=== PATIENT | female | born 1935 | race Caucasian/White ===

== ENCOUNTER → 2017-03-29 | Outpatient (CLI) | payer MEDICARE, SELFPAY ==
--- NOTE | 2017-04-01 05:52 | US ---
Procedure: US CAROTID DOPPLER BILATERAL Exam Date: 03/29/2017 1:36 PM CDT Ordering Provider: Melina Deal Clinical Indication: DISORDER OF CAROTID ARTERY Comparison: None TECHNIQUE : Real-time cerebrovascular ultrasonography was obtained from sternal notch to the angle of the mandible bilaterally utilizing bhat scale, color flow and spectral Doppler analysis. Systolic velocity ratios were calculated for internal carotid artery to common carotid artery bilaterally. FINDINGS: RIGHT CAROTID BIFURCATION: No significant atherosclerotic plaque. Peak systolic and end-diastolic velocities in the right internal carotid artery are 49 and 15 cm/s. Internal carotid/common carotid ratio is 1.1. Right vertebral flow is antegrade. LEFT CAROTID BIFURCATION: No significant atherosclerotic plaque. Peak systolic and end-diastolic velocities in the left internal carotid artery are 49 and 15 cm/s. Internal carotid/common carotid ratio is 1.0. Left vertebral flow is antegrade. IMPRESSION: 1. No significant atherosclerotic plaque in each carotid bulb and ICA origin. 2. There is no significant stenosis (less than 30%) at both ICA origins. 3. Bilateral antegrade vertebral artery flow. Electronically signed by: Misbah Fuentes MD 04/01/2017 5:51 AM CDT
== END ==
LOC: US 13:18
PROVIDERS: ATTEND Family Medicine
DX: R22.1 Localized swelling, mass and lump, neck (principal); I77.9 Disorder of arteries and arterioles, unspecified; R42 Dizziness and giddiness

== ENCOUNTER 2017-06-09 19:40 | Emergency (ER) | payer MEDICARE ==
--- NOTE | 2017-06-09 19:47 | ED.PDOC ---
History of Present Illness - General Chief Complaint: General Stated Complaint: irregular heart beat Time Seen by Provider: 06/09/17 19:46 Source: patient Exam Limitations: no limitations - History of Present Illness Timing/Duration: 1-3 hours Severity: moderate Location: shoulder Prior Chest Pain/Cardiac Workup: other - previous cardiac ablation fo SVT Improving Factors: nothing Worsening Factors: nothing Nitro Today/Relief: no nitro taken today Aspirin Treatment Today: no aspirin today Associated Symptoms: nausea/vomiting Allergies/Adverse Reactions: Allergies NO KNOWN ALLERGY Allergy (Verified 06/09/17 20:39) Home Medications: Ambulatory Orders Clonazepam 0.5 mg PO BEDTIME 03/23/14 HYDROcodone 5MG/APAP 325MG [[place] 5/325] 1 ea PO Q4-6H PRN 03/23/14 Metoprolol Tartrate 03/23/14 Simvastatin [Zocor] 2.5 mg PO BEDTIME 03/23/14 Trazodone HCl 50 mg PO BEDTIME 03/23/14 Review of Systems - Review of Systems Constitutional: States: no symptoms reported EENTM: States: no symptoms reported Respiratory: States: no symptoms reported Cardiology: States: see HPI Gastrointestinal/Abdominal: States: no symptoms reported Musculoskeletal: States: no symptoms reported Skin: States: no symptoms reported Past Medical History (General) - Patient Medical History Hx Cardiac Disorders: Yes - SVT, hx ablation, irreg HR. Hx Congestive Heart Failure: No Hx Pacemaker: No Hx Hypertension: No Hx Diabetes: No - reports borderline. Hx MRSA: No Surgical History: other - hysterectomy,cardiac ablation - Social History Hx Tobacco Use: No - Quit 6 mo ago, now on vape cig Hx Chewing Tobacco Use: No Hx Alcohol Use: No Hx Substance Use: No Hx Physical Abuse: No Hx Emotional Abuse: No - Activities of Daily Living Patient Lives Alone: No - daughter - Female History Patient is a Female of Child Bearing Age (10 -59 yrs old): Yes Patient : No - menopausal Family Medical History - Family History Sister Living Status: Cause of : [place] last week Hx Cardiac Disease: Yes - dad Physical Exam - Physical Exam General Appearance: Alert, Anxious, No apparent distress Eyes, Ears, Nose, Throat Exam: PERRL/EOMI, normal ENT inspection Neck: non-tender, full range of motion, supple Respiratory: chest non-tender, lungs clear, normal breath sounds, no respiratory distress Cardiovascular/Chest: normal peripheral pulses, regular rate, rhythm, no edema, no murmur Peripheral Pulses: radial,right: 2+, radial,left: 2+ Gastrointestinal/Abdominal: normal bowel sounds, non tender, soft, no organomegaly Neurologic: alert, oriented x 3 Skin Exam: normal color, warm/dry Progress - Progress Progress: 06/09/17 21:27 Vital Signs 06/09/17 20:31 Temperature 97 F L Pulse Rate [ 79 left] Respiratory 18 Rate Blood Pressure 159/90 [left] O2 Sat by Pulse 98 Oximetry - Results/Orders Results/Orders: Laboratory Tests 06/09/17 20:06 WBC 5.7 RBC 4.09 L Hgb 13.3 Hct 39.1 MCV 95.5 MCH 32.5 H MCHC 33.9 RDW 13.7 Plt Count 282 MPV 8.4 Absolute Neuts (auto) 2.70 Absolute Lymphs (auto) 1.90 Absolute Monos (auto) 0.50 Absolute Eos (auto) 0.50 H Absolute Basos (auto) 0.10 Neutrophils % 46.6 Lymphocytes % 33.8 Monocytes % 9.0 Eosinophils % 9.1 H Basophils % 1.5 PT 10.0 INR 0.880 PTT (SP) 35.8 Sodium 136 Potassium 4.0 Chloride 105 Carbon Dioxide 25 Anion Gap 10.0 L BUN 16 Creatinine 0.59 L BUN/Creatinine Ratio 27.1 H Random Glucose 131 H Serum Osmolality 275.0 Calcium 9.4 Magnesium 1.9 Total Bilirubin 0.6 Direct Bilirubin 0.2 Indirect Bilirubin 0.4 AST 50 H ALT 42 Alkaline Phosphatase 383 H Creatine Kinase 52 CK-MB (CK-2) 0.9 CK-MB (CK-2) % Not Reportable Troponin I < 0.02 Serum Total Protein 7.7 Albumin 3.6 Laboratory Tests 06/09/17 06/09/17 20:06 22:00 WBC 5.7 RBC 4.09 L Hgb 13.3 Hct 39.1 MCV 95.5 MCH 32.5 H MCHC 33.9 RDW 13.7 Plt Count 282 MPV 8.4 Absolute Neuts (auto) 2.70 Absolute Lymphs (auto) 1.90 Absolute Monos (auto) 0.50 Absolute Eos (auto) 0.50 H Absolute Basos (auto) 0.10 Neutrophils % 46.6 Lymphocytes % 33.8 Monocytes % 9.0 Eosinophils % 9.1 H Basophils % 1.5 PT 10.0 INR 0.880 PTT (SP) 35.8 Sodium 136 Potassium 4.0 Chloride 105 Carbon Dioxide 25 Anion Gap 10.0 L BUN 16 Creatinine 0.59 L BUN/Creatinine Ratio 27.1 H Random Glucose 131 H Serum Osmolality 275.0 Calcium 9.4 Magnesium 1.9 Total Bilirubin 0.6 Direct Bilirubin 0.2 Indirect Bilirubin 0.4 AST 50 H ALT 42 Alkaline Phosphatase 383 H Creatine Kinase 52 CK-MB (CK-2) 0.9 CK-MB (CK-2) % Not Reportable Troponin I < 0.02 < 0.02 Serum Total Protein 7.7 Albumin 3.6 - EKG/XRAY/CT EKG: Sinus Comments: heart rate 67 occ pvc;low voltage QRS XRAY: chest - no acute abnormalities noted Departure - Departure Clinical Impression: Palpitations Time of Disposition: 22:48 Disposition: Discharge to Home or Self Care Condition: Fair Departure Forms: ED Discharge - Pt. Copy, Patient Portal Self Enrollment Instructions: DI for Arrhythmias, DI for Palpitations Referrals: Melina Deal DO [Primary Care Provider] - 1-2 Weeks Home Medications: Ambulatory Orders Clonazepam 0.5 mg PO BEDTIME 03/23/14 HYDROcodone 5MG/APAP 325MG [[place] 5/325] 1 ea PO Q4-6H PRN 03/23/14 Metoprolol Tartrate 03/23/14 Simvastatin [Zocor] 2.5 mg PO BEDTIME 03/23/14 Trazodone HCl 50 mg PO BEDTIME 03/23/14 Additional Instructions: Continue with all home medications;Return to ER as neede;Follow up with primary md 06/12/2017 call for appointment
[2017-06-09] MEDS ORDERED: SODIUM CHLORIDE 0.9% 500ML 500 ML IVS ONE (19:49)
--- NOTE | 2017-06-09 20:20 | RAD ---
EXAM DESCRIPTION: Chest,1 View CLINICAL HISTORY: pain COMPARISON: March 23, 2014 FINDINGS: Cardiac silhouette is within normal limits. Aorta is tortuous. The patient is rotated. There is atherosclerosis. EKG leads project over the chest. There is no focal parenchymal or pleural disease. There is no acute osseous process visualized. IMPRESSION: No evidence of acute cardiopulmonary disease. Electronically signed by: Pop Stout MD 06/09/2017 8:18 PM CDT
[2017-06-09 20:39] VITALS: TEMP 97
[2017-06-09 22:07] VITALS: O2SAT 95
[2017-06-09 23:01] VITALS: BP 133/76
== END 2017-06-09 23:01 | disposition home or self-care (01) ==
LOC: ER 19:40
DX: R00.2 Palpitations (principal); F17.210 Nicotine dependence, cigarettes, uncomplicated; Z79.899 Other long term (current) drug therapy
CPT/HCPCS: 36415; 71010; 80048; 80076; 82550; 82553; 84484; 85025; 85610; 85730; 93005; J7040

== ENCOUNTER 2017-06-10 23:37 | Emergency (ER) | payer MEDICARE ==
[2017-06-10 23:59] VITALS: TEMP 98.3; O2SAT 98
[2017-06-11] MEDS ORDERED: NITROGLYCERIN 0.4 MG 25 EA TAB SL ONE (00:10)
[2017-06-11] MEDS ORDERED: ASPIRIN (CHEWABLE) 81 MG TAB PO ONE (00:10)
[2017-06-11] MEDS ORDERED: LIDOCAINE VIS-MYLANTA 30 ML UD PO ONE ×2 (00:33→00:34)
--- NOTE | 2017-06-11 00:46 | ED.PDOC ---
History of Present Illness - General Chief Complaint: Cardiovascular Problem Stated Complaint: irregular heartbeat Time Seen by Provider: 06/11/17 00:09 Source: patient, RN notes reviewed, Vital Signs reviewed Exam Limitations: no limitations - History of Present Illness Initial Comments: Patient comes to ER with c/o irregular heart rate and pulse down to 39. The irregular HR started yesterday and she was seen here in ER last night and had a negative workup and was sent home with diagnosis of palpitations and a prescription of Metoprolol. Today her heart rate felt irregular so he took one. She was told in the past, before her cardiac ablation, that she could take Metoprolol twice daily if needed so she took a second dose because her heart rate still felt irregular. Her pulse was only in the 70's when she took the second Metoprolol and it dropped to 39 after taking the second dose. She does reports some indigestion and L sided chest pressure. Timing/Duration: days - 2 Severity: mild Location: other - L chest Activities at Onset: rest Prior Chest Pain/Cardiac Workup: other - Had cardiac ablation in past Improving Factors: nothing Worsening Factors: medication Nitro Today/Relief: 0.4 mg x 1, provided by ED, mild relief Aspirin Treatment Today: 81 mg x 4, provided by ED Associated Symptoms: chest pain, shortness of breath Allergies/Adverse Reactions: Allergies NO KNOWN ALLERGY Allergy (Verified 06/10/17 23:59) Home Medications: Ambulatory Orders Clonazepam 0.5 mg PO BEDTIME 03/23/14 HYDROcodone 5MG/APAP 325MG [[place] 5/325] 1 ea PO Q4-6H PRN 03/23/14 Metoprolol Tartrate 03/23/14 Simvastatin [Zocor] 2.5 mg PO BEDTIME 03/23/14 Trazodone HCl 50 mg PO BEDTIME 03/23/14 Nitroglycerin 0.4 mg Tab [Nitrostat] 1 ea SL .Q5M PRN #1 bttl 06/11/17 Review of Systems - Review of Systems Constitutional: States: no symptoms reported Respiratory: States: short of breath Cardiology: States: see HPI, chest pain, palpitations. Denies: syncope Gastrointestinal/Abdominal: States: see HPI - Indigestion Musculoskeletal: States: no symptoms reported Skin: States: no symptoms reported Neurological: States: no symptoms reported All other Systems: No Change from Baseline Past Medical History (General) - Patient Medical History Hx Seizures: No Hx Stroke: No Hx Dementia: No Hx Asthma: No Hx of COPD: No Hx Cardiac Disorders: Yes - SVT, hx ablation, irreg HR. Hx Congestive Heart Failure: No Hx Pacemaker: No Hx Hypertension: Yes Hx Thyroid Disease: No Hx Diabetes: No - reports borderline. Hx Gastroesophageal Reflux: No Hx Renal Disease: No Hx Cancer: No Hx of HIV: No Hx Hepatitis C: No Hx MRSA: No Surgical History: Hysterectomy - Vaccination History Hx Tetanus, Diphtheria Vaccination: No Hx Influenza Vaccination: No Hx Pneumococcal Vaccination: No - Social History Hx Tobacco Use: No - Quit 6 mo ago, now on vape cig Hx Chewing Tobacco Use: No Hx Alcohol Use: No Hx Substance Use: No Hx Substance Use Treatment: No Hx Depression: No Feels Threatened In Home Enviroment: No Feels Threatened In a Relationship: No Hx Physical Abuse: No Hx Emotional Abuse: No Hx Suspected Abuse: No - Female History Patient : No - menopausal Family Medical History - Family History Sister Living Status: Cause of : [place] last week Hx Cardiac Disease: Yes - dad Physical Exam - Physical Exam General Appearance: Alert, Anxious, No apparent distress, Well Developed, Well Groomed, Well Hydrated, Well Nourished Neck: supple, normal inspection Respiratory: chest non-tender, lungs clear, normal breath sounds, no respiratory distress, no accessory muscle use Cardiovascular/Chest: normal peripheral pulses, regular rate, rhythm, no gallop , no JVD, no murmur Peripheral Pulses: radial,right: 2+, radial,left: 2+ Extremity: normal range of motion, normal inspection Neurologic: alert, normal mood/affect, oriented x 3 Skin Exam: normal color, warm/dry Comments: Vital Signs 06/10/17 06/10/17 06/11/17 23:42 23:49 00:23 Temperature 98.3 F Pulse Rate [ 66 66 77 monitor] Respiratory 15 Rate Blood Pressure 150/85 118/74 [Left Arm] O2 Sat by Pulse 98 Oximetry 06/11/17 00:29 Temperature Pulse Rate [ 69 monitor] Respiratory 14 Rate Blood Pressure 111/54 [Left Arm] O2 Sat by Pulse Oximetry Progress - Progress Progress: 06/11/17 01:08 Discussed palpitations/symptoms, labs, etc with patient. 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 Discussed will need follow up with Manager [facility] and a holter monitor. Will d/c home with Rx for SLNTG - Results/Orders Results/Orders: Laboratory Tests 06/11/17 06/11/17 00:00 00:00 WBC 7.1 RBC 3.98 L Hgb 12.9 Hct 38.1 MCV 95.8 MCH 32.4 H MCHC 33.8 RDW 13.4 Plt Count 281 MPV 9.4 Absolute Neuts (auto) 3.40 Absolute Lymphs (auto) 2.10 Absolute Monos (auto) 0.90 H Absolute Eos (auto) 0.70 H Absolute Basos (auto) 0.00 Neutrophils % 48.8 Lymphocytes % 29.3 Monocytes % 12.2 H Eosinophils % 9.4 H Basophils % 0.3 Sodium 136 Potassium 4.4 Chloride 103 Carbon Dioxide 26 Anion Gap 11.4 L BUN 14 Creatinine 0.58 L BUN/Creatinine Ratio 24.1 H Random Glucose 76 Serum Osmolality 271.2 L Calcium 9.4 Total Bilirubin 0.8 AST 65 H ALT 42 Alkaline Phosphatase 359 H Creatine Kinase 66 CK-MB (CK-2) 0.8 CK-MB (CK-2) % Not Reportable Troponin I < 0.02 Serum Total Protein 7.5 Albumin 3.3 Globulin 4.2 H Albumin/Globulin Ratio 0.8 L - EKG/XRAY/CT EKG: Sinus, no ST T wave changes, Unchanged from - 06/09/17 Departure - Departure Clinical Impression: Palpitations Time of Disposition: 01:12 Disposition: Discharge to Home or Self Care Condition: Good Departure Forms: ED Discharge - Pt. Copy, Patient Portal Self Enrollment Instructions: DI for Palpitations, DI for Arrhythmias Diet: resume usual diet Activity: increase activity as tolerated Referrals: Melina Deal DO [Primary Care Provider] - 1-2 Weeks Prescriptions: Nitroglycerin 0.4 mg Tab [Nitrostat] 1 ea SL .Q5M PRN #1 bttl PRN Reason: Chest Pain Home Medications: Ambulatory Orders Clonazepam 0.5 mg PO BEDTIME 03/23/14 HYDROcodone 5MG/APAP 325MG [[place] 5/325] 1 ea PO Q4-6H PRN 03/23/14 Metoprolol Tartrate 03/23/14 Simvastatin [Zocor] 2.5 mg PO BEDTIME 03/23/14 Trazodone HCl 50 mg PO BEDTIME 03/23/14 Nitroglycerin 0.4 mg Tab [Nitrostat] 1 ea SL .Q5M PRN #1 bttl 06/11/17 Additional Instructions: Stop Metoprolol Take Nitroglycerine as needed Follow up with Manager C[facility]
[2017-06-11 01:26] VITALS: BP 120/68
== END 2017-06-11 01:27 | disposition home or self-care (01) ==
LOC: ER 23:37
DX: R00.2 Palpitations (principal); I10 Essential (primary) hypertension; Z79.899 Other long term (current) drug therapy

== ENCOUNTER 2018-01-12 20:32 | Observation (INO) | payer MEDICARE ==
--- NOTE | 2018-01-12 21:33 | ED.PDOC ---
History of Present Illness - General Chief Complaint: Neuro Symptoms/Deficits Stated Complaint: slurred speech Time Seen by Provider: 01/12/18 21:09 Source: patient, family Exam Limitations: no limitations Additional Information: PT STATES SHE WAS WALKING WITH HER DAUGHTER WHEN SHE BEGAN TO HAVE DIFFICULTY SPEAKING. SHE KNEW WHAT SHE WANTED TO SAY BUT COULD NOT FORM THE WORDS. STATES THE WRONG WORDS CAME OUT ALSO IN THE WRONG ORDER AND SHE WAS TALKING "NONSENSE" . WAS MUCH BETTER WHEN SHE ARRIVED HERE BUT HAS SINCE RESOLVED. - History of Present Illness Timing/Duration: other - DATA VIRTUALIZATION CONSULTANT Severity: moderate Improving Factors: other - RESOLVED COMPLETELY AT THE TIME OF THE EXAM Worsening Factors: nothing Associated Symptoms: denies symptoms Allergies/Adverse Reactions: Allergies NO KNOWN ALLERGY Allergy (Verified 06/10/17 23:59) Home Medications: Ambulatory Orders Clonazepam 0.5 mg PO BEDTIME 03/23/14 HYDROcodone 5MG/APAP 325MG [[place] 5/325] 1 ea PO Q4-6H PRN 03/23/14 Metoprolol Tartrate 03/23/14 Simvastatin [Zocor] 2.5 mg PO BEDTIME 03/23/14 Trazodone HCl 50 mg PO BEDTIME 03/23/14 Nitroglycerin 0.4 mg Tab [Nitrostat] 1 ea SL .Q5M PRN #1 bttl 06/11/17 Review of Systems - Review of Systems Constitutional: Denies: chills, fever EENTM: States: no symptoms reported Respiratory: Denies: cough, orthopnea, short of breath Cardiology: Denies: chest pain, palpitations, syncope Gastrointestinal/Abdominal: Denies: abdominal pain, nausea, vomiting Genitourinary: States: no symptoms reported Musculoskeletal: States: no symptoms reported Skin: States: no symptoms reported Neurological: States: other - HAS HAD SOME ATAXIA RECENTLY WHICH HAS BEEN INTERMITTENT. Endocrine: States: no symptoms reported Hematologic/Lymphatic: States: no symptoms reported Past Medical History (General) - Patient Medical History Hx Seizures: No Hx Stroke: No Hx Dementia: No Hx Asthma: No Hx of COPD: No Hx Cardiac Disorders: Yes - SVT Hx Congestive Heart Failure: No Hx Pacemaker: No Hx Hypertension: Yes Hx Thyroid Disease: No Hx Diabetes: No Hx Gastroesophageal Reflux: No Hx Renal Disease: No Hx Cancer: No Hx of HIV: No Hx Hepatitis C: No Hx MRSA: No Surgical History: Hysterectomy - Vaccination History Hx Tetanus, Diphtheria Vaccination: No Hx Influenza Vaccination: No Hx Pneumococcal Vaccination: No - Social History Hx Tobacco Use: Yes - Vapes currently Hx Chewing Tobacco Use: No Hx Alcohol Use: No Hx Substance Use: No Hx Substance Use Treatment: No Hx Depression: No Hx Physical Abuse: No Hx Emotional Abuse: No Hx Suspected Abuse: No - Female History Patient : No - menopausal Family Medical History - Family History Sister Living Status: Cause of : [place] last week Hx Cardiac Disease: Yes - dad Physical Exam - Physical Exam General Appearance: Alert, No apparent distress Eye Exam: bilateral normal ENT Exam: normal ENT inspection, hearing grossly normal Neck: non-tender, full range of motion, supple, normal inspection, other - NO BRUITS Respiratory: lungs clear, normal breath sounds Cardiovascular/Chest: regular rate, rhythm, no murmur Gastrointestinal/Abdominal: normal bowel sounds, non tender, soft, no organomegaly Back Exam: normal inspection, no CVA tenderness Extremities Exam: non-tender, normal range of motion, no evidence of injury, no edema Mental Status: alert, oriented x 3 program attendant Exam: normal speech, PERRL Coordination/Gait: normal finger to nose, negative Romberg's sign, other - NL HEEL TO [place] Motor/Sensory: no motor deficit, no sensory deficit Skin Exam: normal color, warm/dry Progress - Progress Progress: 01/12/18 23:08 REMAINS NEUROLOGICALLY NON FOCAL. SPEECH NL. - EKG/XRAY/CT XRAY: chest - BLAIR CT: HEAD: BLAIR CT Ordered: Yes Stroke Information - Onset of Symptoms Symptoms of Stroke: Aphasia Stroke Onset of Symptoms Date: 01/12/18 Stroke Onset of Symptoms Time: 20:00 - Contraindications Antithrombotic Contraindication: Treatment not indicated - SX'S RESOLVED. Departure - Departure Clinical Impression: TIA (transient ischemic attack) Qualifiers: Transient cerebral ischemia type: unspecified Qualified Code(s): G45.9 - Transient cerebral ischemic attack, unspecified Hypertension Qualifiers: Hypertension type: essential hypertension Qualified Code(s): I10 - Essential ( primary) hypertension Time of Disposition: 23:10 - D/W ROMANA WILL ADMIT Disposition: Admit Patient Condition: Fair Departure Forms: ED Discharge - Pt. Copy, Patient Portal Self Enrollment Referrals: Melina Deal DO [Primary Care Provider] - 1-2 Weeks Home Medications: Ambulatory Orders Clonazepam 0.5 mg PO BEDTIME 03/23/14 HYDROcodone 5MG/APAP 325MG [[place] 5/325] 1 ea PO Q4-6H PRN 03/23/14 Metoprolol Tartrate 03/23/14 Simvastatin [Zocor] 2.5 mg PO BEDTIME 03/23/14 Trazodone HCl 50 mg PO BEDTIME 03/23/14 Nitroglycerin 0.4 mg Tab [Nitrostat] 1 ea SL .Q5M PRN #1 bttl 06/11/17
--- NOTE | 2018-01-12 21:35 | CT ---
EXAM DESCRIPTION: Head CLINICAL HISTORY: slurred speech COMPARISON: February 10, 2008 Technique: Contiguous axial images of the brain were obtained without the administration of intravenous contrast. This exam was performed according to our departmental dose-optimization program which includes use of Automated Exposure Control, adjustment of the mA and/or kV according to patient size and/or use of iterative reconstruction technique. Findings: Brain: Mild cerebral atrophy. Moderate periventricular and deep white matter hypodensities, most commonly due to nonspecific white matter chronic microvascular ischemia.No hemorrhage. No territorial infarct. No mass effect. No herniation. Ventricles: Within normal limits for patient's age. Bones: No acute osseous abnormality. Paranasal sinuses: Unremarkable. Mastoid air cells: Unremarkable. Soft tissues: No acute abnormality. IMPRESSION: No acute intracranial abnormalities. Cerebral atrophy and nonspecific white matter chronic microvascular ischemic changes. If clinical concern for infarct persists recommend obtaining MRI for further evaluation. Electronically signed by: Luis Maldonado MD 01/12/2018 9:33 PM CDT
--- NOTE | 2018-01-12 22:19 | RAD ---
EXAM DESCRIPTION: Chest,1 View CLINICAL HISTORY:82 years Female, AMS Comparison: June 09, 2017 FINDINGS: No focal lung consolidation. No pleural effusion. No pneumothorax. Cardiac and mediastinal silhouette is unremarkable. No acute osseous abnormality. Atherosclerotic vascular calcifications.Soft tissues are unremarkable. IMPRESSION: No acute findings. No focal lung consolidation. Electronically signed by: Luis Maldonado MD 01/12/2018 10:18 PM CDT
[2018-01-13] MEDS ORDERED: SODIUM CHLORIDE 0.9% (FLUSH) 10 ML SYG IV PRN (00:45)
[2018-01-13] MEDS ORDERED: ONDANSETRON INJ 4 MG/2 ML VIAL IV PRN (00:45)
[2018-01-13] MEDS ORDERED: PANTOPRAZOLE SODIUM IV 40 MG VIAL IV SCH ×2 (01:00→21:00)
[2018-01-13] MEDS ORDERED: CLONAZEPAM 0.5 MG PO SCH (01:00)
[2018-01-13] MEDS ORDERED: ENOXAPARIN SODIUM 40 MG/0.4 ML SYG SUBCU SCH ×2 (01:00→21:00)
[2018-01-13] MEDS ORDERED: IV SET AND CAP CHANGE INJ INJ SCH (01:00)
[2018-01-13] MEDS ORDERED: TRAZODONE HCL 50 MG PO SCH (01:00)
[2018-01-13] MEDS ORDERED: traZODone HCL 50 MG TAB ONE (01:06)
[2018-01-13] MEDS ORDERED: SODIUM CHLORIDE 0.9% (FLUSH) 10 ML SYG IV SCH (09:00)
[2018-01-13] MEDS ORDERED: ATORVASTATIN 10 MG TAB PO ONE (09:42)
[2018-01-13 10:10] VITALS: BP 111/66; TEMP 97.8; O2SAT 93
--- NOTE | 2018-01-13 12:18 | SSS ---
SUPERVISING PHYSICIAN: Alejandro Esqueda M.D. DISCHARGE DIAGNOSIS: 1. Transient ischemic attack symptoms that have resolved. 2. Aphasia/word salad most likely secondary to #1. 3. Gastroesophageal reflux disease with some chronic nausea. 4. Primary biliary cirrhosis currently on no treatments. 5. Anxiety. 6. Osteoarthritis. HISTORY OF PRESENT ILLNESS: This is an 82 year-old female patient that presented to the Emergency Room yesterday with previous symptoms of difficulty speaking. She and her daughter had been walking and she knew what to say, but she could not form the words. She knew the words were wrong. She had no other neurological symptoms that were noted. Shortly thereafter she went home and then decided to come to the Emergency Room. By the time she got to the Emergency Room she only occasionally had the confused or unintelligible mixture of words and phrases, and it had mostly resolved. A CT of her head was completed and showed no intracranial abnormalities with cerebral atrophy and nonspecific white matter chronic microvascular ischemic changes noted. A chest x-ray was also done and showed no acute findings. Lab work showed a normal CBC with PT of 10.7, INR of 0.9 and PTT 36.2. Her electrolytes were within normal limits excepting that her AST was elevated at 74, alkaline phosphatase was 475, serum total protein 8.5, globulin 4.5. Her UA was within normal limits. The patient was placed in Observation in the hospital. PAST MEDICAL HISTORY: 1. Paroxysmal supraventricular tachycardia. She had been evaluated in the past by Dr. Bañuelos and Dr. Dixon. She is currently on no medications. 2. Anxiety. 3. Primary biliary cirrhosis. She has seen Dr. Cooley in the past but is not currently being treated with any medications. 4. Gastroesophageal reflux disease with chronic nausea 5. Osteoarthritis. PAST SURGICAL HISTORY: 1. Hysterectomy. 2. Toe surgery. CURRENT MEDICATIONS: 1. Hydrocodone. 2. Clonazepam, 3. Trazodone. ALLERGIES: NO KNOWN DRUG ALLERGIES. SOCIAL HISTORY: She lives in [place]. She quit smoking in 2013 but currently vapes. She drinks alcohol on a very rare occasion and denies any illicit drug use. REVIEW OF SYSTEMS: Negative for chills, fever or weight changes. HEENT: Positive for speech abnormalities as stated in the History of Present Illness. Negative for ear pain, vision changes, sore throat or sinus symptoms. RESPIRATORY: Denies coughing, wheezing, shortness of breath. CARDIOLOGY: Denies chest pain, palpitations or tachycardia. GASTROINTESTINAL: Positive for chronic nausea but negative for vomiting, diarrhea or constipation. GENITOURINARY: Negative for hematuria, dysuria or polyuria. MUSCULOSKELETAL: Positive for some mild osteoarthritis. Negative for any acute symptoms. NEUROLOGIC: As per History of Present Illness. PHYSICAL EXAMINATION: VITAL SIGNS: She is afebrile. Blood pressure has been 152/75, it is now 130/ 80. Heart rate is 69, respiratory rate 16, O2 sat is 92% on room air. GENERAL: This is an 82 year-old female patient lying in her hospital bed. She is in no acute distress. HEENT: Normocephalic and atraumatic. Pupils are equal and reactive. Oropharynx is clear. NECK: Supple without mass. RESPIRATORY: Essentially clear to auscultation bilaterally. CHEST: There is equal rise and fall of the chest with inspiration and expiration. CARDIOVASCULAR: Regular rate and rhythm. GASTROINTESTINAL: Abdomen is soft, nondistended, non-tender. Bowel sounds are positive. There is no organomegaly. EXTREMITIES: No cyanosis, clubbing or edema. NEUROLOGIC: She is awake, alert and oriented times three. Cranial nerves II- XII are within normal limits. LABORATORY: Morning labs show slightly low RBCs at 4.06, but otherwise her CBC is within normal limits with the exception that her ESR is elevated at 42. Electrolytes are within normal limits. Liver enzymes have slightly improved with an AST of 59, ALT of 46, alkaline phosphatase of 416. Serum total protein is 7.5. LDL is 147, HDL is 72, triglycerides are 127. All other labs and films have been reviewed via the EMR. DISCHARGE PLAN: The patient will be discharged home in stable condition. She has not had any issues neurologically overnight. She will be put on an aspirin as well as Lipitor daily. We have spoken at length about symptoms and to return to the hospital for any problems or complications. I have also ordered a carotid ultrasound for her for next week to be done here at [facility]. After she has completed her ultrasound testing, she is to followup with her primary care physician, Dr. Melina Deal in [place]. She is to return to the hospital or followup with Dr. Deal for any further problems or complications. Dr. Esqueda is the collaborating physician available for consultation. DISCHARGE MEDICATIONS: 1. Trazodone. 2. Clonazepam. 3. Hydrocodone. 4. Aspirin 325 mg daily. 5. Lipitor 10 mg daily. 6. Adrián p.r.n.. #[id number] and #[id number] [facility]
[2018-01-13] MEDS ORDERED: traZODone HCL 50 MG TAB PO SCH (21:00)
[2018-01-14] MEDS ORDERED: ASPIRIN (ENTERIC COATED) 325 MG TAB PO SCH (09:00)
== END 2018-01-13 10:36 | disposition home or self-care (01) ==
LOC: ER 20:32 → MS 23:14
PROVIDERS: ADMIT Nurse Practitioner Acute Care; ATTEND Nurse Practitioner Acute Care
DX: R47.01 Aphasia (principal); K21.9 Gastro-esophageal reflux disease without esophagitis; R11.0 Nausea; K74.3 Primary biliary cirrhosis; F41.9 Anxiety disorder, unspecified; M19.90 Unspecified osteoarthritis, unspecified site; I10 Essential (primary) hypertension; F17.290 Nicotine dependence, other tobacco product, uncomplicated; Z79.891 Long term (current) use of opiate analgesic; Z79.899 Other long term (current) drug therapy
CPT/HCPCS: 96372; 96374; J1650; 80053 ×2; 80061; 36415 ×2; 81001 ×2; 85025 ×2; 83735; 85730; 85610; 85651; 71045; 70450; 94760 ×3; 99406; 99285; 93005; G0378

== ENCOUNTER → 2018-01-30 | Outpatient (CLI) | payer MEDICARE ==
--- NOTE | 2018-01-31 09:44 | US ---
EXAM DESCRIPTION: Carotid Duplex CLINICAL HISTORY: TIA-G45.9 COMPARISON: None Available. TECHNIQUE: Carotid Doppler ultrasound FINDINGS: Right Submitted images show no significant stenosis in the common carotid, internal carotid or external carotid arteries. Calcified plaque is seen in the right carotid bulb. The following flow velocities were obtained: Common carotid artery peak systolic flow velocity measures 62.5 centimeters per second. Internal carotid artery peak systolic flow velocity measures 62.3 centimeters per second. External carotid artery peak systolic flow velocity measures 51.3 centimeters per second. Flow in the right vertebral artery is antegrade. The right internal carotid to common carotid peak systolic flow velocity ratio equals 1.0 which is normal. Left Submitted images show normal caliber of the left common carotid, internal carotid and external carotid arteries with no significant stenosis. There is tortuosity of the left common carotid artery with mild calcified plaque at the left carotid bifurcation. The following flow velocities were obtained: Common carotid artery peak systolic flow velocity measures 61.4 centimeters per second. Internal carotid artery peak systolic flow velocity measures 52.3 centimeters per second. External carotid artery peak systolic flow velocity measures 54.3 centimeters per second. Flow in the left vertebral artery is antegrade. The left internal carotid to common carotid peak systolic flow velocity ratio of 0.9 is normal. IMPRESSION: No significant stenosis. Electronically signed by: Elmer Whalen MD 01/31/2018 9:43 AM CDT
== END ==
LOC: US 14:02
PROVIDERS: ATTEND Nurse Practitioner Acute Care
DX: G45.9 Transient cerebral ischemic attack, unspecified (principal)

== ENCOUNTER 2019-11-29 16:31 | Observation (INO) | payer MEDICARE ==
--- NOTE | 2019-11-29 16:49 | ED.PDOC ---
History of Present Illness - General Time Seen by Provider: 11/29/19 16:39 - History of Present Illness Initial Comments: 84 yo F PMH AFib and Ablation presents to ED Daughter at bedside c/o AMS and face pain after fall syncope closed head injury and face pain today. Pt. is amnestic to the event. Denies fever chills nausea vomiting diarrhea chest pain sob diaphoresis. No change in diet rest bowel or bladder. H/o smoking now vaping denies drinking has PMD for follow up no other c/o today. Allergies/Adverse Reactions: Allergies NO KNOWN ALLERGY Allergy (Verified 06/10/17 23:59) Home Medications: Ambulatory Orders Clonazepam 0.5 mg PO BID 03/23/14 HYDROcodone 5MG/APAP 325MG [[place] 5/325] 1 ea PO Q4-6H PRN 03/23/14 Trazodone HCl 50 mg PO BEDTIME 03/23/14 Aspirin [Aspirin EC] 325 mg PO DAILY #30 tab 01/13/18 Atorvastatin Calcium [Lipitor] 10 mg PO BEDTIME #30 tab 01/13/18 Review of Systems - Review of Systems Constitutional: States: see HPI EENTM: States: see HPI Respiratory: States: see HPI Cardiology: States: see HPI Gastrointestinal/Abdominal: States: see HPI Genitourinary: States: see HPI Musculoskeletal: States: see HPI Skin: States: see HPI Neurological: States: see HPI Endocrine: States: see HPI All other Systems: Reviewed and Negative Past Medical History (General) - Patient Medical History Hx Seizures: No Hx Stroke: No Hx Dementia: No Hx Asthma: No Hx of COPD: No Hx Cardiac Disorders: Yes - SVT Hx Congestive Heart Failure: No Hx Pacemaker: No Hx Hypertension: Yes Hx Thyroid Disease: No Hx Diabetes: No Hx Gastroesophageal Reflux: No Hx Renal Disease: No Hx Cancer: No Hx of HIV: No Hx Hepatitis C: No Hx MRSA: No - Vaccination History Hx Tetanus, Diphtheria Vaccination: No Hx Influenza Vaccination: No Hx Pneumococcal Vaccination: No - Social History Hx Tobacco Use: Yes - Vapes currently Hx Chewing Tobacco Use: No Hx Alcohol Use: No Hx Substance Use: No Hx Substance Use Treatment: No Hx Depression: No Hx Physical Abuse: No Hx Emotional Abuse: No Hx Suspected Abuse: No - Female History Patient : No - menopausal Family Medical History - Family History Father Living Status: Hx Family Hypertension: Yes Hx Cardiac Disease: Yes Sister Living Status: Cause of : MS last week Hx Cardiac Disease: Yes - dad Physical Exam - Physical Exam General Appearance: No apparent distress Eye Exam: bilateral normal Ears, Nose, Throat: normal ENT inspection Neck: non-tender, full range of motion Respiratory: normal breath sounds Cardiovascular/Chest: regular rate, rhythm Gastrointestinal/Abdominal: non tender, soft Rectal Exam: deferred Back Exam: normal inspection Extremity: normal range of motion, non-tender Neurologic: no motor/sensory deficits - Oriented to self but confused on date and other details Skin Exam: normal color Progress - Progress Progress: 11/29/19 16:53 A/P-Fall Syncope Closed Head Injury Contusions Abrasions-iv bolus cbc cmp lipase trop ekg cxr c collar ct head c spine facial bones xr pelvis ua asa tylenol salicylate reassess 11/29/19 17:25 EKG-non specific TW changes No STEMI NSR 62bpm motion artifact 11/29/19 18:35 Laboratory Tests 11/29/19 11/29/19 11/29/19 17:09 17:09 17:09 WBC 4.2 L RBC 3.55 L Hgb 11.8 L Hct 34.7 L MCV 97.8 MCH 33.1 H MCHC 33.9 RDW 15.6 H Plt Count 188 MPV 9.7 Absolute Neuts (auto) 2.30 Absolute Lymphs (auto) 1.10 Absolute Monos (auto) 0.40 Absolute Eos (auto) 0.40 Absolute Basos (auto) 0.00 Neutrophils % 54.8 Lymphocytes % 26.0 Monocytes % 9.1 H Eosinophils % 9.0 H Basophils % 1.1 PT 9.9 INR 1.00 PTT (SP) 27.2 Sodium Potassium Chloride Carbon Dioxide Anion Gap BUN Creatinine BUN/Creatinine Ratio Random Glucose Serum Osmolality Calcium Total Bilirubin AST ALT Alkaline Phosphatase Troponin I Serum Total Protein Albumin Globulin Albumin/Globulin Ratio Lipase 48 Urine Color Urine Appearance Urine pH Ur Specific [place] Urine Protein Urine Glucose (UA) Urine Ketones Urine Blood Urine Nitrite Urine Bilirubin Urine Urobilinogen Ur Leukocyte Esterase Urine RBC Urine WBC Ur Epithelial Cells Urine Bacteria Salicylates < 4.0 Acetaminophen < 10.0 L Ethyl Alcohol 11/29/19 11/29/19 11/29/19 17:09 17:09 17:13 WBC RBC Hgb Hct MCV MCH MCHC RDW Plt Count MPV Absolute Neuts (auto) Absolute Lymphs (auto) Absolute Monos (auto) Absolute Eos (auto) Absolute Basos (auto) Neutrophils % Lymphocytes % Monocytes % Eosinophils % Basophils % PT INR PTT (SP) Sodium 132 L Potassium 3.9 Chloride 100 L Carbon Dioxide 23 Anion Gap 12.9 BUN 11 Creatinine 0.62 BUN/Creatinine Ratio 17.7 Random Glucose 93 Serum Osmolality 263.6 L Calcium 8.8 Total Bilirubin 1.6 H AST 75 H ALT 46 Alkaline Phosphatase 369 H Troponin I < 0.02 Serum Total Protein 7.2 Albumin 3.2 Globulin 4.0 H Albumin/Globulin Ratio 0.8 L Lipase Urine Color Urine Appearance Urine pH Ur Specific [place] Urine Protein Urine Glucose (UA) Urine Ketones Urine Blood Urine Nitrite Urine Bilirubin Urine Urobilinogen Ur Leukocyte Esterase Urine RBC Urine WBC Ur Epithelial Cells Urine Bacteria Salicylates Acetaminophen Ethyl Alcohol < 5.40 11/29/19 17:36 WBC RBC Hgb Hct MCV MCH MCHC RDW Plt Count MPV Absolute Neuts (auto) Absolute Lymphs (auto) Absolute Monos (auto) Absolute Eos (auto) Absolute Basos (auto) Neutrophils % Lymphocytes % Monocytes % Eosinophils % Basophils % PT INR PTT (SP) Sodium Potassium Chloride Carbon Dioxide Anion Gap BUN Creatinine BUN/Creatinine Ratio Random Glucose Serum Osmolality Calcium Total Bilirubin AST ALT Alkaline Phosphatase Troponin I Serum Total Protein Albumin Globulin Albumin/Globulin Ratio Lipase Urine Color Yellow Urine Appearance Clear Urine pH 6.0 Ur Specific [place] 1.015 Urine Protein Negative Urine Glucose (UA) Negative Urine Ketones Negative Urine Blood Trace-intact H Urine Nitrite Negative Urine Bilirubin Negative Urine Urobilinogen 0.2 Ur Leukocyte Esterase Small H Urine RBC 0 Urine WBC 10-20 H Ur Epithelial Cells 0 Urine Bacteria 0 Salicylates Acetaminophen Ethyl Alcohol EXAM DESCRIPTION: Chest,1 View CLINICAL HISTORY: 84 years Female fall COMPARISON: January 12, 2018. TECHNIQUE: AP view of the chest was obtained. FINDINGS: Cardiac silhouette is enlarged. Central vessels are not increased. Chronic changes lower lungs bilaterally. No effusions bilaterally. No pneumothorax. IMPRESSION: No active disease. Findings unchanged when correlated with the R study. Electronically signed by: Mirian Barrera MD 11/29/2019 6:09 PM CDT EXAM DESCRIPTION: Pelvis CLINICAL HISTORY: 84 years Female trauma COMPARISON: None TECHNIQUE: AP view of the chest was obtained. FINDINGS: No fracture seen. Normal bony mineralization. No erosive or lytic lesions seen. IMPRESSION: No fracture or dislocation seen. Electronically signed by: Mirian Barrera MD 11/29/2019 6:10 PM CDT EXAM DESCRIPTION: Head CLINICAL HISTORY: 84 years Female trauma COMPARISON: January 12, 2018. TECHNIQUE: Images were obtained in axial, sagittal, and coronal planes. This exam was performed according to our departmental dose- optimization program which includes use of Automated Exposure Control, adjustment of the mA and/or kV according to patient size and/or use of iterative reconstruction technique. FINDINGS: Ventricular system is moderately enlarged. Mild prominence of the cortical sulci. Mild to moderate cerebral volume loss. No abnormal areas of increased attenuation seen. No extra-axial fluid collections noted. Symmetric aeration mastoid air cells bilaterally. No evidence for skull fracture. Mucosal thickening ethmoid sinuses bilaterally. IMPRESSION: No acute intracranial abnormality. No evidence for hemorrhage, mass lesion, or large acute infarction. Age-appropriate changes. Electronically signed by: Mirian Barrera MD 11/29/2019 5:59 PM CDT EXAM DESCRIPTION: Maxillofacial CLINICAL HISTORY: 84 years Female trauma COM PARISON: None TECHNIQUE: Images were obtained in axial, sagittal, and coronal planes. This exam was performed according to our departmental dose- optimization program which includes use of Automated Exposure Control, adjustment of the mA and/or kV according to patient size and/or use of iterative reconstruction technique. FINDINGS: No evidence for nasal bone fracture. Anterior maxillary spine is intact. No fractures orbits bilaterally. Zygomatic arches intact bilaterally. Pterygoid plates intact bilaterally. No mandibular fracture. Patient is edentulous. No air-fluid levels seen. 7 mm osteoma inferior left frontal sinus. Mild mucosal thickening bilateral ethmoid and left maxillary sinuses. Intervertebral disc space narrowing C4-5 and C5-6 with moderate anterior osteophyte formation. Erosive and sclerotic changes vertebral endplates C4-5. Marginal spur formation with neural foraminal narrowing bilaterally at these levels. IMPRESSION: No acute fracture or subluxation seen. Electronically signed by: Mirian Barrera MD 11/29/2019 6:07 PM CDT 11/29/19 18:41 Pt refused c spine 11/29/19 19:44 Laboratory Tests 11/29/19 11/29/19 11/29/19 17:09 17:09 17:09 WBC 4.2 L RBC 3.55 L Hgb 11.8 L Hct 34.7 L MCV 97.8 MCH 33.1 H MCHC 33.9 RDW 15.6 H Plt Count 188 MPV 9.7 Absolute Neuts (auto) 2.30 Absolute Lymphs (auto) 1.10 Absolute Monos (auto) 0.40 Absolute Eos (auto) 0.40 Absolute Basos (auto) 0.00 Neutrophils % 54.8 Lymphocytes % 26.0 Monocytes % 9.1 H Eosinophils % 9.0 H Basophils % 1.1 PT 9.9 INR 1.00 PTT (SP) 27.2 Sodium Potassium Chloride Carbon Dioxide Anion Gap BUN Creatinine BUN/Creatinine Ratio Random Glucose Serum Osmolality Calcium Total Bilirubin AST ALT Alkaline Phosphatase Troponin I Serum Total Protein Albumin Globulin Albumin/Globulin Ratio Lipase 48 Urine Color Urine Appearance Urine pH Ur Specific [place] Urine Protein Urine Glucose (UA) Urine Ketones Urine Blood Urine Nitrite Urine Bilirubin Urine Urobilinogen Ur Leukocyte Esterase Urine RBC Urine WBC Ur Epithelial Cells Urine Bacteria Salicylates < 4.0 Acetaminophen < 10.0 L Ethyl Alcohol 11/29/19 11/29/19 11/29/19 17:09 17:09 17:13 WBC RBC Hgb Hct MCV MCH MCHC RDW Plt Count MPV Absolute Neuts (auto) Absolute Lymphs (auto) Absolute Monos (auto) Absolute Eos (auto) Absolute Basos (auto) Neutrophils % Lymphocytes % Monocytes % Eosinophils % Basophils % PT INR PTT (SP) Sodium 132 L Potassium 3.9 Chloride 100 L Carbon Dioxide 23 Anion Gap 12.9 BUN 11 Creatinine 0.62 BUN/Creatinine Ratio 17.7 Random Glucose 93 Serum Osmolality 263.6 L Calcium 8.8 Total Bilirubin 1.6 H AST 75 H ALT 46 Alkaline Phosphatase 369 H Troponin I < 0.02 Serum Total Protein 7.2 Albumin 3.2 Globulin 4.0 H Albumin/Globulin Ratio 0.8 L Lipase Urine Color Urine Appearance Urine pH Ur Specific [place] Urine Protein Urine Glucose (UA) Urine Ketones Urine Blood Urine Nitrite Urine Bilirubin Urine Urobilinogen Ur Leukocyte Esterase Urine RBC Urine WBC Ur Epithelial Cells Urine Bacteria Salicylates Acetaminophen Ethyl Alcohol < 5.40 11/29/19 11/29/19 17:36 18:59 WBC RBC Hgb Hct MCV MCH MCHC RDW Plt Count MPV Absolute Neuts (auto) Absolute Lymphs (auto) Absolute Monos (auto) Absolute Eos (auto) Absolute Basos (auto) Neutrophils % Lymphocytes % Monocytes % Eosinophils % Basophils % PT INR PTT (SP) Sodium Potassium Chloride Carbon Dioxide Anion Gap BUN Creatinine BUN/Creatinine Ratio Random Glucose Serum Osmolality Calcium Total Bilirubin AST ALT Alkaline Phosphatase Troponin I < 0.02 Serum Total Protein Albumin Globulin Albumin/Globulin Ratio Lipase Urine Color Yellow Urine Appearance Clear Urine pH 6.0 Ur Specific [place] 1.015 Urine Protein Negative Urine Glucose (UA) Negative Urine Ketones Negative Urine Blood Trace-intact H Urine Nitrite Negative Urine Bilirubin Negative Urine Urobilinogen 0.2 Ur Leukocyte Esterase Small H Urine RBC 0 Urine WBC 10-20 H Ur Epithelial Cells 0 Urine Bacteria 0 Salicylates Acetaminophen Ethyl Alcohol Departure - Departure Clinical Impression: Syncope and collapse, Multiple contusions, Abrasions of multiple sites Closed head injury Qualifiers: Encounter type: initial encounter Qualified Code(s): S09.90XA - Unspecified injury of head, initial encounter Altered mental status Qualifiers: Altered mental status type: unspecified Qualified Code(s): R41.82 - Altered mental status, unspecified Time of Disposition: 19:57 Disposition: Admit Patient Condition: Fair Referrals: Melina Deal DO [Primary Care Provider] - 1-2 Days Home Medications: Ambulatory Orders Clonazepam 0.5 mg PO BID 03/23/14 HYDROcodone 5MG/APAP 325MG [[place] 5/325] 1 ea PO Q4-6H PRN 03/23/14 Trazodone HCl 50 mg PO BEDTIME 03/23/14 Aspirin [Aspirin EC] 325 mg PO DAILY #30 tab 01/13/18 Atorvastatin Calcium [Lipitor] 10 mg PO BEDTIME #30 tab 01/13/18 Decision To Admit - Decistion To Admit Decision to Admit Date: 11/29/19 Decision to Admit Time: 19:57 - Yoselin Huynh Accepts
--- NOTE | 2019-11-29 18:00 | CT ---
EXAM DESCRIPTION: Head CLINICAL HISTORY: 84 years Female trauma COMPARISON: January 12, 2018. TECHNIQUE: Images were obtained in axial, sagittal, and coronal planes. This exam was performed according to our departmental dose-optimization program which includes use of Automated Exposure Control, adjustment of the mA and/or kV according to patient size and/or use of iterative reconstruction technique. FINDINGS: Ventricular system is moderately enlarged. Mild prominence of the cortical sulci. Mild to moderate cerebral volume loss. No abnormal areas of increased attenuation seen. No extra-axial fluid collections noted. Symmetric aeration mastoid air cells bilaterally. No evidence for skull fracture. Mucosal thickening ethmoid sinuses bilaterally. IMPRESSION: No acute intracranial abnormality. No evidence for hemorrhage, mass lesion, or large acute infarction. Age-appropriate changes. Electronically signed by: Mirian Barrera MD 11/29/2019 5:59 PM CDT
--- NOTE | 2019-11-29 18:09 | CT ---
EXAM DESCRIPTION: Maxillofacial CLINICAL HISTORY: 84 years Female trauma COMPARISON: None TECHNIQUE: Images were obtained in axial, sagittal, and coronal planes. This exam was performed according to our departmental dose-optimization program which includes use of Automated Exposure Control, adjustment of the mA and/or kV according to patient size and/or use of iterative reconstruction technique. FINDINGS: No evidence for nasal bone fracture. Anterior maxillary spine is intact. No fractures orbits bilaterally. Zygomatic arches intact bilaterally. Pterygoid plates intact bilaterally. No mandibular fracture. Patient is edentulous. No air-fluid levels seen. 7 mm osteoma inferior left frontal sinus. Mild mucosal thickening bilateral ethmoid and left maxillary sinuses. Intervertebral disc space narrowing C4-5 and C5-6 with moderate anterior osteophyte formation. Erosive and sclerotic changes vertebral endplates C4-5. Marginal spur formation with neural foraminal narrowing bilaterally at these levels. IMPRESSION: No acute fracture or subluxation seen. Electronically signed by: Mirian Barrera MD 11/29/2019 6:07 PM CDT
--- NOTE | 2019-11-29 18:11 | RAD ---
EXAM DESCRIPTION: Pelvis CLINICAL HISTORY: 84 years Female trauma COMPARISON: None TECHNIQUE: AP view of the chest was obtained. FINDINGS: No fracture seen. Normal bony mineralization. No erosive or lytic lesions seen. IMPRESSION: No fracture or dislocation seen. Electronically signed by: Mirian Barrera MD 11/29/2019 6:10 PM CDT
--- NOTE | 2019-11-29 18:11 | RAD ---
EXAM DESCRIPTION: Chest,1 View CLINICAL HISTORY: 84 years Female fall COMPARISON: January 12, 2018. TECHNIQUE: AP view of the chest was obtained. FINDINGS: Cardiac silhouette is enlarged. Central vessels are not increased. Chronic changes lower lungs bilaterally. No effusions bilaterally. No pneumothorax. IMPRESSION: No active disease. Findings unchanged when correlated with the R study. Electronically signed by: Mirian Barrera MD 11/29/2019 6:09 PM CDT
[2019-11-29] MEDS ORDERED: ONDANSETRON INJ 4 MG/2 ML VIAL IV PRN (22:07)
[2019-11-29] MEDS ORDERED: SODIUM CHLORIDE 0.9% (FLUSH) 10 ML SYG IV PRN (22:07)
[2019-11-29] MEDS ORDERED: TRAZODONE HCL 100 MG PO SCH (22:11)
[2019-11-29] MEDS ORDERED: traZODone HCL 100 MG TAB PO ONE (22:29)
[2019-11-29] MEDS ORDERED: IV SET AND CAP CHANGE INJ INJ SCH (22:30)
[2019-11-29] MEDS: HYDROcodone 5MG/APAP 325MG 1 EA TAB PO PRN (22:40)
[2019-11-30] MEDS ORDERED: ASPIRIN (ENTERIC COATED) 81 MG TAB PO ONE (07:55)
[2019-11-30] MEDS ORDERED: METOPROLOL SUCCINATE XL 25 MG TAB PO ONE (07:55)
[2019-11-30] MEDS: HYDROcodone 5MG/APAP 325MG 1 EA TAB PO PRN (08:26)
[2019-11-30] MEDS ORDERED: SODIUM CHLORIDE 0.9% (FLUSH) 10 ML SYG IV SCH (09:00)
[2019-11-30] MEDS ORDERED: ASPIRIN (ENTERIC COATED) 325 MG TAB PO SCH (09:00)
[2019-11-30] MEDS ORDERED: METOPROLOL SUCCINATE XL 25 MG TAB PO SCH (09:00)
[2019-11-30 09:05] VITALS: BP 112/51; TEMP 98.5; O2SAT 95
[2019-11-30] MEDS ORDERED: CEFDINIR 300 MG CAP PO SCH (10:00)
[2019-11-30] MEDS ORDERED: ATORVASTATIN 10 MG TAB PO SCH (21:00)
[2019-11-30] MEDS ORDERED: traZODone HCL 100 MG TAB PO SCH (21:00)
--- NOTE | 2019-12-02 08:38 | SSS ---
SUPERVISING PHYSICIAN: Alejandro Esqueda MD DATE OF ADMISSION: 11/29/19 DATE OF DISCHARGE: 11/30/19 DISCHARGE DIAGNOSIS: 1. Altered mental status with possible syncopal episodes and no apparent trauma, of unknown length and there is no recollection of the event. She has had no symptoms since that time. 2. History of transient ischemic attacks with no residual effects in 2018. 3. Gastroesophageal reflux disease with chronic nausea. 4. Primary biliary cirrhosis, currently on no treatment. 5. Anxiety. 6. Osteoarthritis. 7. History of cardiac ablation due to atrial fibrillation, presently on no medications. HISTORY OF PRESENT ILLNESS: This is an 84-year-old female patient who was at home and had been doing her regular tasks. At some point, she had no recollection of passing out or trauma, she just knew that she had a memory lapse. She called her daughter and initially said some things that were quite confusing, but those symptoms improved. Her daughter brought her to the Emergency Room. It was unclear if she had any kind of injury, but she does not remember any trauma. Her initial vital signs showed a temperature 99.1 with heart rate 67, blood pressure 152/77, respiratory rate 14, O2 saturation 98% on room air. Her chest x-ray showed no active disease, findings unchanged when correlated with the prior study. Her head CT showed no acute intracranial abnormality, no evidence of hemorrhage, mass lesion or large acute infarction. Her maxillofacial CT showed no acute fracture or subluxation seen. Her pelvis x-ray showed no fracture or dislocation seen. Lab was also drawn and her WBCs were 4.2, hemoglobin 11.8, hematocrit 34.7. Coagulation studies were within normal limits. Sodium was slightly low at 132, potassium 3.9, chloride 100, carbon dioxide 23, BUN 11, creatinine 0.62. Serum osmolality 263.6 with total bilirubin 1.6. AST 75, ALT 46, alkaline phosphatase 369. Serial troponins were both negative. Urinalysis showed a trace intact blood with small urine leukocyte esterase and 10 to 20 urine WBCs. Her salicylates, acetaminophen and ethyl alcohol were all within normal limits. She was given a small amount of fluids in the Emergency Room. I was called for hospital admission. The patient was placed in observation in the hospital. PAST MEDICAL HISTORY: 1. Paroxysmal supraventricular tachycardia by history. She is presently on no medications. 2. Anxiety. 3. Primary biliary cirrhosis. She is currently on no treatment. 4. Gastroesophageal reflux disease with chronic nausea. 5. Osteoarthritis. 6. History of atrial fibrillation with ablation. PAST SURGICAL HISTORY: 1. Hysterectomy. 2. Toe surgery. 3. Cardiac ablation. CURRENT MEDICATIONS: 1. Aspirin. 2. Atorvastatin. 3. Clonazepam. 4. Hydrocodone. 5. Metoprolol succinate. 6. Trazodone. ALLERGIES: NO KNOWN DRUG ALLERGIES. SOCIAL HISTORY: She lives in [place]. She quit smoking in 2013, but she does currently vape. She denies any ETOH or illicit drug use. REVIEW OF SYSTEMS: Negative except as per history of present illness and all those symptoms have resolved. PHYSICAL EXAMINATION: VITAL SIGNS: Temperature 98.5, heart rate 76, blood pressure 112/51, respiratory rate 16, O2 saturation 95% on room air. GENERAL: This is an 84-year-old female patient who is walking around in her hospital room. She is in no acute distress. HEENT: Normocephalic, atraumatic. Pupils are equal and reactive. Oropharynx is clear. NECK: Supple without mass. RESPIRATORY: Essentially clear to auscultation bilaterally. CHEST: There is equal rise and fall of the chest with inspiration and expiration. CARDIOVASCULAR: Regular rate and rhythm. GASTROINTESTINAL: Abdomen is soft, nondistended, nontender. Bowel sounds are positive. EXTREMITIES: No cyanosis, clubbing or edema. NEUROLOGIC: Awake, alert and oriented times three. Cranial nerves II-XII are grossly intact as tested. LABORATORY: Her followup labs show WBC 4, hemoglobin 12.2, hematocrit 35.9. Electrolytes are basically within normal limits. Her total bilirubin is down to 1.4 with AST 71, ALT 43, alkaline phosphatase 360, serum total protein 3, globulin 3.7. LDL 78.9, HDL 55. TSH 1.12. MICROBIOLOGY: Urine culture pending. All other labs and films have been reviewed via the EMR. HOSPITAL COURSE: The patient was placed in observation. Her neuro checks were monitored closely. She had no recurrent neurological symptoms. She is somewhat anxious, but mostly due to her wanting to go outside and vape. We discussed vaping cessation, but she said she was 84 years old and she would vape and did not have any intention of quitting. She does see Dr. Cathryn Deal in [place] and she is to followup with her. We also discussed that she will need a carotid ultrasound and an echocardiogram and that I would set that testing up at the hospital. She will be discharged home today in stable condition. DISCHARGE PLAN: The patient will be discharged home in stable condition. She is to followup with Dr. Deal in the next one to two weeks. She is to increase her activity as tolerated and resume her previous diet. She is to resume her previous medications. I have also sent her in some cefdinir for her urinary tract infection. She will return to the hospital or followup with Dr. Deal for any problems or complications. DISCHARGE MEDICATIONS: 1. Trazodone. 2. Clonazepam. 3. Hydrocodone. 4. Atorvastatin. 5. Metoprolol. 6. Aspirin. 7. Cefdinir. #[id number] MTDD
== END 2019-11-30 11:15 | disposition home or self-care (01) ==
LOC: ER 16:31 → MS 21:05
PROVIDERS: ADMIT Nurse Practitioner Acute Care; ATTEND Nurse Practitioner Acute Care
DX: R41.82 Altered mental status, unspecified (principal); T14.8XXA Other injury of unspecified body region, initial encounter; K21.9 Gastro-esophageal reflux disease without esophagitis; R11.0 Nausea; K74.3 Primary biliary cirrhosis; F41.9 Anxiety disorder, unspecified; M19.90 Unspecified osteoarthritis, unspecified site; I10 Essential (primary) hypertension; F17.290 Nicotine dependence, other tobacco product, uncomplicated; D16.4 Benign neoplasm of bones of skull and face; M48.02 Spinal stenosis, cervical region; M25.78 Osteophyte, vertebrae; Z86.73 Personal history of transient ischemic attack (TIA), and cerebral infarction without residual deficits; Z79.82 Long term (current) use of aspirin; Z79.899 Other long term (current) drug therapy; Z86.79 Personal history of other diseases of the circulatory system; Z82.49 Family history of ischemic heart disease and other diseases of the circulatory system; W18.30XA Fall on same level, unspecified, initial encounter; Y92.009 Unspecified place in unspecified non-institutional (private) residence as the place of occurrence of the external cause
CPT/HCPCS: 80329 ×2; 80053 ×2; 87086; 80061; 36415 ×2; 87077; 87186; 81001; 85025 ×2; 80320; 83690; 83735; 85730; 85610; 84443; 84484 ×2; 71045; 72170; 70450; 70486; 94760 ×4; 99285; 93005; G0378

== ENCOUNTER 2020-02-07 15:34 | Emergency (ER) | payer MEDICARE ==
[2020-02-07] MEDS ORDERED: ONDANSETRON INJ 4 MG/2 ML VIAL IV ONE (15:52)
[2020-02-07] MEDS ORDERED: TRIAMCINOLONE ACETONIDE INJ 40 MG/ML VIAL IM ONE (15:52)
[2020-02-07] MEDS ORDERED: MORPHINE SULFATE INJ 10 MG/ML VIAL IV ONE (15:52)
[2020-02-07] MEDS ORDERED: LIDOCAINE 1% MPF 5 ML VIAL INJ ONE (15:53)
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
[2020-02-07] MEDS ORDERED: LIDOCAINE 1% 10 ML VIAL INJ ONE (16:08)
--- NOTE | 2020-02-07 16:18 | RAD ---
EXAM DESCRIPTION: Knee,Right 1 or 2 Views CLINICAL HISTORY: knee pain, swelling COMPARISON: None. TECHNIQUE: 2 views right FINDINGS: Lateral femoral osteophyte formation is observed. Mild medial tibial osteophyte formation is also noted. A large joint effusion is seen. Patellofemoral joint arthritis is also observed. Mild osteopenia is observed. IMPRESSION: Mild tricompartmental joint arthritis is observed. A large joint effusion is seen. Electronically signed by: Alphonso Dunne MD 02/07/2020 4:16 PM CDT
[2020-02-07 17:32] VITALS: O2SAT 96
[2020-02-07 18:06] VITALS: BP 120/83
[2020-02-07 18:28] VITALS: TEMP 97.3
== END 2020-02-07 18:19 | disposition home or self-care (01) ==
LOC: ER 15:34
DX: M25.461 Effusion, right knee (principal); M25.061 Hemarthrosis, right knee; I10 Essential (primary) hypertension; Z86.73 Personal history of transient ischemic attack (TIA), and cerebral infarction without residual deficits; F17.290 Nicotine dependence, other tobacco product, uncomplicated
CPT/HCPCS: 36415; 73560; 80048; 85025; 85651; 86140; 87070; 89060; J2270; J2405; J3301

== ENCOUNTER → 2020-02-25 | Outpatient (CLI) | payer MEDICARE ==
--- NOTE | 2020-02-26 07:34 | MRI ---
Study: MRI of the Right Knee. Indication: pain in right knee Technique: Multiplanar, multi sequence MRI of the right knee was obtained without intravenous contrast. Comparison: None. Findings: Prior full-thickness ACL tear with no intact fibers. PCL intact. Both the MCL and FCL are slightly thickened and lax with mild increased internal PD signal. In addition, there is mild thickening of the distal IT band. These findings can be seen in the setting of the osteoarthritic knee. No acute tear defect of the medial or lateral collateral structures. Volume loss throughout the posterior horn and body medial meniscus, likely degenerative. Subtle irregular free edge and undersurface tearing at these sites. Free edge and horizontal cleavage tearing body lateral meniscus with oblique undersurface tearing posterior horn. Extensive grade 4 chondrosis and cortical remodeling of the central to posterior weightbearing aspects of the lateral compartment with grade 2-3 changes of the medial compartment. Patellofemoral extensor mechanism intact. No high-grade chondral defect patellofemoral compartment. Moderate size knee effusion with scattered synovitis. No acute fracture. Impression: Remote full-thickness ACL tear. Complex multidirectional tearing medial meniscus and lateral meniscus. 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 Moderate size knee effusion. Additional findings as above. Electronically signed by: Wilfrid Ch MD 02/26/2020 7:33 AM CDT
== END ==
LOC: MRI 09:52
PROVIDERS: ATTEND Orthopaedic Surgery
DX: S83.511A Sprain of anterior cruciate ligament of right knee, initial encounter (principal); S83.241A Other tear of medial meniscus, current injury, right knee, initial encounter; S83.281A Other tear of lateral meniscus, current injury, right knee, initial encounter; M25.461 Effusion, right knee; M94.261 Chondromalacia, right knee